=== PATIENT | male | born 1980 ===

== ENCOUNTER 2017-01-30 17:03 | Inpatient (IN) | payer OTHER ==
[2017-01-30] MEDS ORDERED: Sodium Chloride 0.9% 1,000 ML IV ONE (17:51)
[2017-01-30] MEDS ORDERED: Vancomycin 1 gm/NS 200 ml 1 GM/200 ML BAG IVPB STA (17:56)
[2017-01-30] MEDS ORDERED: Piperacill/Tazo 3.375gm in Dex 3.375 GM/50 ML BAG IVPB STA (17:56)
[2017-01-30] MEDS ORDERED: Piperacillin/Tazobact 3.375 gm 100 ML IVPB ONE (18:09)
[2017-01-30 18:15] LABS: BASO % 0.6 % (0.0-2.0); EOS # 0.4 K/uL (0.0-0.7); EOS % 5.5 % (0.0-4.0); HEMATOCRIT 39.2 % (35.0-51.0); LYMPH % 28.7 % (20.0-40.0); MEAN CELL VOLUME 81.4 fL (80.0-94.0); MEAN CORPUSCULAR HEMOGLOBIN 27.1 pg (27.0-31.0); MEAN CORPUSCULAR HGB CONC 33.3 g/dL (33.0-37.0); MONO # 0.7 K/uL (0.0-0.8); MONO % 9.5 % (0.0-10.0); RED CELL DISTRIBUTION WIDTH 14.2 % (11.5-14.5)
[2017-01-30 18:21] LABS: VENOUS BLOOD GAS BASE EXCESS 3.8 mmol/L (0.0-2.0); VENOUS BLOOD GAS PCO2 46 mmHg (40-60); VENOUS BLOOD PH 7.41 (7.32-7.43)
[2017-01-30 18:23] LABS: CHLORIDE 101 mmol/L (98-107); POTASSIUM 3.3 mmol/L (3.6-5.2)
[2017-01-30 18:25] LABS: AST/SGOT 24 U/L (17-59); BILIRUBIN,TOTAL 0.7 mg/dL (0.2-1.3); CARBON DIOXIDE 25 mmol/L (22-30); GFR AFRICAN-AMERICAN > 60
[2017-01-30 18:26] LABS: ALB/GLOB RATIO 1.4 (1.0-2.1); ALKALINE PHOSPHATASE 61 U/L (38-126); ALT/SGPT 33 U/L (21-72); BLOOD UREA NITROGEN 13 mg/dL (9-20); CALCIUM 8.9 mg/dl (8.6-10.4); GLUCOSE,RANDOM 99 mg/dL (75-110); SODIUM 138 mmol/L (132-148); TOTAL PROTEIN 7.4 g/dL (6.3-8.3)
[2017-01-30 18:31] LABS: INR 1.1
[2017-01-30 18:31] LABS: RBC URINE 12 /hpf (0-3); URINE BILIRUBIN NEGATIVE (NEGATIVE); URINE BLOOD NEGATIVE (NEGATIVE); URINE COLOR Yellow (YELLOW); URINE GLUCOSE (UA) NORMAL (Normal); URINE KETONE TRACE mg/dL (NEGATIVE); URINE LEUKOCYTE ESTERASE TRACE Leu/uL (Negative); URINE PROTEIN 2+ mg/dL (NEGATIVE); URINE UROBILINOGEN NORMAL mg/dL (0.2-1.0); WBC URINE 20 /hpf (0-5)
[2017-01-30] MEDS ORDERED: Iohexol 350mg/ml 100 ML ONE (18:42)
[2017-01-30] MEDS ORDERED: Vancomycin 1 GM 1 GM/250 ML BAG IVPB ONE (18:53)
[2017-01-30] MEDS ORDERED: Sodium Chloride 0.9% 1,000 ML ONE (18:53)
--- NOTE | 2017-01-30 20:07 | CT ---
EXAM: CT Abdomen and Pelvis With Intravenous Contrast CLINICAL HISTORY: 36 years old, male; Pain; Abdominal pain; Flank; Left lower quadrant (llq); Additional info: Cellulitis to the groin, R/O sergio's gangrene TECHNIQUE: Axial computed tomography images of the abdomen and pelvis with intravenous contrast. This CT exam was performed using one or more of the following dose reduction techniques: automated exposure control, adjustment of the mA and/or kV according to patient size, and/or use of iterative reconstruction technique. Coronal and sagittal reformatted images were created and reviewed. CONTRAST: 100 mL of omnipaque 350 administered intravenously. EXAM DATE/TIME: 01/30/2017 6:01 PM COMPARISON: There are no prior studies for comparison. FINDINGS: Lower thorax: Heart size is normal. There are atelectatic changes at the lung bases right greater than left. There is minimal scarring. There is a small hiatal hernia. ABDOMEN: Liver: There is fatty infiltration of the liver. Gallbladder and bile ducts: unremarkable Pancreas: unremarkable Spleen: unremarkable Adrenals: Right adrenal is unremarkable. There is nodular thickening of the left adrenal. Kidneys and ureters: unremarkable Stomach and bowel: Stomach is partially distended. Rotation is normal. There is no obstruction. Terminal ileum is unremarkable. Appendix is not visualized. There is no pericecal inflammation.Colon is incompletely distended which limits evaluation. Appendix: See above. PELVIS: Bladder: Bladder is partially distended. There is mild bladder wall thickening. Reproductive: Seminal vesicles and prostate are unremarkable. ABDOMEN and PELVIS: Intraperitoneal space: There is no free air or free fluid. Bones/joints: There are degenerative changes in the osseus structures. Soft tissues: There is bilateral inguinal adenopathy. There is inflammation in the soft tissues of the groin, right greater than left. There is edema in the dorsal aspect of the penis. There is no discrete abscess. Vasculature: There are multiple phleboliths. Aorta and inferior vena cava are unremarkable. Lymph nodes: There is no para-aortic adenopathy. There are no enlarged iliac nodes. IMPRESSION: Cellulitis in the groin, inflammation greatest on the right; edema in the dorsal aspect of the penis; bilateral inguinal adenopathy Additional findings as described above.
--- NOTE | 2017-01-30 20:16 | C.PDOC ---
History Of Present Illness 36 y/o male presents to ED with complaints of 2 days of redness, pain and swelling to right groin extended to penis. At ED penis is very swollen and patient reports tactile fever. Patient's PMD is Dr. Alvarez. Patient denies chills, abdominal pain, back pain, hematuria and dysuria. No other complaints at this time. Time Seen by Provider: 01/30/17 17:26 Chief Complaint (Nursing): Male Genitourinary History Per: Patient History/Exam Limitations: no limitations Onset/Duration Of Symptoms: Days Current Symptoms Are (Timing): Still Present Associated Symptoms: denies: Fever Past Medical History Reviewed: Historical Data, Nursing Documentation, Vital Signs Vital Signs: Last Vital Signs Temp 98.6 F 01/30/17 21:51 Pulse 82 01/30/17 21:51 Resp 20 01/30/17 21:51 BP 142/81 01/30/17 21:51 Pulse Ox 96 01/30/17 21:51 - Medical History PMH: HTN - [facility] Procedures FLUOROSCOPY OF LEFT HEART USING LOW OSMOLAR CONTRAST (12/05/16) FLUOROSCOPY OF MULT COR ART USING L OSM CONTRAST (12/05/16) MEASURE OF CARDIAC SAMPL & PRESSURE, L HEART, PERC APPROACH (12/05/16) Family History: States: Unknown Family Hx - Social History Hx Alcohol Use: No Hx Substance Use: No - Immunization History Hx Tetanus Toxoid Vaccination: No Hx Influenza Vaccination: No Hx Pneumococcal Vaccination: No Review Of Systems Except As Marked, All Systems Reviewed And Found Negative. Constitutional: Negative for: Fever, Chills Cardiovascular: Negative for: Chest Pain Respiratory: Negative for: Shortness of Breath Gastrointestinal: Negative for: Nausea, Vomiting, Diarrhea Genitourinary: Negative for: Dysuria Musculoskeletal: Negative for: Back Pain Skin: Negative for: Rash Neurological: Negative for: Weakness, Numbness Physical Exam - Physical Exam Appears: Non-toxic, No Acute Distress Skin: Normal Color, Warm Head: Atraumatic, Normacephalic Eye(s): bilateral: Normal Inspection Lymphatic: Inguinal Node Tenderness (b/l lymphadenopathy) Cardiovascular: Rhythm Regular, No Murmur Respiratory: Normal Breath Sounds, No Rales, No Rhonchi, No Wheezing Gastrointestinal/Abdominal: Soft, No Tenderness, No Guarding, No Rebound Male Genital: No Circumcised (with +phimosis), Other (+Inguinal lymphadenopathy , Erythema Edema and Induration to right groin involving penis, No crepitus) Extremity: Normal ROM, Capillary Refill (<2 seconds) Neurological/Psych: Oriented x3, Normal Speech Gait: Steady ED Course And Treatment - Laboratory Results Result Diagrams: 01/30/17 18:09 01/30/17 18:09 Interpretation Of Abnormal: WBC is wnl. K 3.3. UA shows signs of (+) UTI. O2 Sat by Pulse Oximetry: 97 (RA) Pulse Ox Interpretation: Normal - CT Scan/US CT abd/pelvis w/ IV contrast Other Rad Studies (CT/US): Read By Radiologist CT/US Interpretation: FINDINGS: Lower thorax: Heart size is normal. There are atelectatic changes at the lung bases right greater. than left. There is minimal scarring. There is a small hiatal hernia. ABDOMEN: Liver: There is fatty infiltration of the liver. Gallbladder and bile ducts: unremarkable. Pancreas: unremarkable. Spleen: unremarkable. Adrenals: Right adrenal is unremarkable. There is nodular thickening of the left adrenal. Kidneys and ureters: unremarkable. Stomach and bowel: Stomach is partially distended. Rotation is normal. There is no obstruction. Terminal ileum is unremarkable. Appendix is not visualized. There is no pericecal. inflammation.Colon is incompletely distended which limits evaluation. Appendix: See above. PELVIS: Bladder: Bladder is partially distended. There is mild bladder wall thickening. Reproductive: Seminal vesicles and prostate are unremarkable. ABDOMEN and PELVIS: Intraperitoneal space: There is no free air or free fluid. Bones/ joints: There are degenerative changes in the osseus structures. Soft tissues: There is bilateral inguinal adenopathy. There is inflammation in the soft tissues of the. groin, right greater than left. There is edema in the dorsal aspect of the penis. There is no discrete. abscess. Vasculature: There are multiple phleboliths. Aorta and inferior vena cava are unremarkable. Lymph nodes: There is no para-aortic adenopathy. There are no enlarged iliac nodes. IMPRESSION: Cellulitis in the groin, inflammation greatest on the right; edema in the dorsal aspect. of the penis; bilateral inguinal adenopathy. Additional findings as described above. Dictated and Authenticated by: Bettina García MD. 01/30/2017 8:06 PM Eastern Time ([place] & [place]) Medical Decision Making Medical Decision Makin yo M presents with pain, redness and swelling to the R groin / penis x 2 days. Based on history and exam, likely cellulitis, possible balanitis with secondary skin infection, r/o sergoi's gangrene. 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 Yeager, who agrees with current plan and has no further recommendations, request to be placed on consult. Labs reviewed, WBC is wnl, lactic acid is nl. IV zosyn and vancomycin infusing. Pt awaiting CT. On re-evaluation, patient is resting comfortably in bed. Pt seen and evaluated by ER MD, agrees with current plan of care. CT results reviewed. Call placed to Dr. Alvarez. Diagnostic results d/w the patient in great detail. Patient notified of plan for inpatient care, which he agrees to. Case d/w Dr. Alvarez, agrees with plan to admit the patient for IV antibiotics and notified of consult placed to Dr. Yeager. Orders given to RN. Disposition - Disposition Disposition: HOSPITALIZED Disposition Time: 20:31 Condition: STABLE - Clinical Impression Clinical Impression: Cellulitis - PA / DESIGN MAINTENANCE ENGINEER / Resident Statement MD/DO has reviewed & agrees with the documentation as recorded. - Scribe Statement The provider has reviewed the documentation as recorded by the Parish Fontanez All medical record entries made by the Parish were at my direction and personally dictated by me. I have reviewed the chart and agree that the record accurately reflects my personal performance of the history, physical exam, medical decision making, and the department course for this patient. I have also personally directed, reviewed, and agree with the discharge instructions and disposition.
[2017-01-30] MEDS ORDERED: Oxycodone/Acetaminophen 5/325 mg Tab PO PRN (20:44)
[2017-01-30] MEDS ORDERED: Home Med 1 UNIT (Atorvastatin [Lipitor] 10 MG) PO SCH (20:45)
[2017-01-30] MEDS ORDERED: Piperacillin/Tazobact 3.375 GM in Sodium Chloride 100 ML IVPB SCH (20:45)
[2017-01-30 21:51] VITALS: RESP 20
[2017-01-30] MEDS ORDERED: Potassium Chloride 10 mEq ER Tab PO ONE (22:40)
--- NOTE | 2017-01-30 23:56 | CP.PCM.HP ---
History of Present Illness - History of Present Illness History of Present Illness: COMPREHENSIVE HISTORY & PHYSICAL EXAM HPI FOR 2 DAYS PT HAS SWELLING IN THE R GROIN EXTENDING TO PEINIS . NO TRAUMA , FEVER ,CHILLS OR ANY PENIAL DISCHARGE . NO EXPOSURE TO STS RECENT OR REMOTE PAST HIST. HTN ON 2 MEDS CATH NORM. COR PERSONAL HIST: Smoking. N Alcohol. N Allergy N Travel_- . FAMILY HIST : ROS : Constitutional: Negative for weight change, chills, night sweats, fatigue and usage of assist device. Eyes: Negative for redness, swelling, itching, discharge, vision changes, blurry vision, double vision, glaucoma, cataracts, Ears: Negative for hearing loss, ringing, , tinnitus, vertigo Nose: Negative for rhinorrhea, stuffiness, sniffing, itching, postnasal drip, discoloration, nasal congestion and epistaxis. Throat: Negative for throat clearing, sore throat, hoarseness, difficulty swallowing and difficulty speaking. Respiratory: Negative for cough, , sputum production, chest tightness, wheezing, pleuritic chest pain ,daytime somnolence, chronic cough, hemoptysis, snoring at night, Cardiovascular: Negative for chest pain, palpitations, orthopnea, PND, Edema of legs, leg cramps, angina, claudication, , irregular heartbeat, Neurology: Negative for irritability, muscle weakness, numbness and tingling, seizures, tremors, migraines, slurred speech, syncope, memory loss, mood changes , recurrent headaches Gastrointestinal: Negative for difficulty swallowing, diarrhea, constipation, black stools, rectal bleeding, nausea, flatulence, reflux, poor appetite, changes in bowel habits, abdominal pain Genitourinary: Negative for frequent urination, hematuria, discharge, incontinence, urinary retention, frequent UTI, Psychiatric: Negative for depression, anxiety/panic, suicidal tendencies, Musculoskeletal: Negative for swollen joints, back pain, , neck pain, morning stiffness of joints, . Skin: Negative for rash, ulcers, itching, dry skin and pigmented lesions. SWELLING IN R GROIN P/E: Constitutional: Appears stated age and in no apparent distress. Head: Normocephalic. Ears: External ear canals patent without inflammation. Tympanic membranes intact with normal light reflex and landmark. Eyes: Pupils are central, bilaterally equal, symmetrical and reacts to light with normal movements and no icterus or pallor. Nose: External nares are patent. Mucosa is pink Mouth-Throat: Good general appearance and condition. No post-pharyngeal/oropharyngeal erythema and tonsillar hypertrophy. Good dental hygiene. Neck-Lymphatic: Neck is supple with normal ROM, no thyromegaly, lymph nodes or masses. JVD is normal with no carotid bruit. Lungs: Clear to percussion and auscultation with bilateral normal air entry. Cardiovascular: S1 and S2 are normal with no murmurs, gallops and rub. GI Exam: No hepatomegaly. Abdomen is soft and non-tender. No Organomegaly , masses or hernias are evident and bowel sounds are normal and active. Neurology: Higher function and all cranial nerves intact, with no gross motor or sensory deficit. Superficial and deep reflexes are normal with downwards planters. No cerebellar deficit with normal gait. Musculoskeletal: No tender spots with normal curvature of the spine with no swelling or restricted ROM of the small and large joints. Extremities: Homans sign absent. Intact pulses with no pitting edema, calf tenderness or skin color changes. Skin: CELLULITIS IN R. GROIN EXTENDING TO PENIS . THE PENIS IS SWOLLEN LAB/RADIOLOGY: ASSESMENT : ACUTE SPREADING CELLULITIS HTN PLAN: ID EVAL IV AB Present on Admission - Present on Admission Any Indicators Present on Admission: No Past Patient History - Past Medical History & Family History Past Medical History?: No - Past Social History Smoking Status: Former Smoker - CARDIAC Hx Hypertension: Yes - MUSCULOSKELETAL/RHEUMATOLOGICAL Hx Falls: No - PSYCHIATRIC Hx Substance Use: No - SURGICAL HISTORY Hx Cardiac Catheterization: Yes - ANESTHESIA Hx Anesthesia: Yes Hx Anesthesia Reactions: No Hx Malignant Hyperthermia: No Has any member of the family had a problem w/ anesthesia?: No Meds Allergies/Adverse Reactions: Allergies Allergy/AdvReac Type Severity Reaction Status Date / Time No Known Allergies Allergy Verified 01/30/17 17:11 Results - Vital Signs Recent Vital Signs: Last Vital Signs Temp 98.6 F 01/30/17 21:51 Pulse 82 01/30/17 21:51 Resp 20 01/30/17 21:51 BP 142/81 01/30/17 21:51 Pulse Ox 97 01/30/17 23:18 - Labs Result Diagrams: 01/30/17 18:09 01/30/17 18:09
[2017-01-31] MEDS: Piperacillin/Tazobact 3.375 GM in Sodium Chloride 100 ML IVPB SCH ×3 (01:14→17:20)
--- NOTE | 2017-01-31 14:18 | CP.PCM.PN ---
Subjective - Date & Time of Evaluation Date of Evaluation: 01/31/17 Time of Evaluation: 14:16 - Subjective Subjective: CHIEF COMPLAINTS TODAY : PAIN SWELLING IN R. GROIN NODYSURIA OR RETENSION ROS. HEENT : N. Resp : No cough, wheezing ,pleuritic CP ,or hemoptysis Cardio : No anginal CP, PND, orthopnea, palpitation GI : No abd.pain, n/v ,diarrhea or GI bleeding . 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 Musculoskel : No joint swelling , Derm : No rash Psych : Normal affect. Ext : No swelling ,calf pain PE. Pt. is alert awake in no distress. V.S As noted in the chart Head ,ear nose,throat and eyes : Normal. Neck : Supple with normal carotids. Lungs: Clear air entry. Heart : S1 & S2 normal with S4. No murmur. Abd : Soft non tender with normal bowel sounds. Neuro : Moves all ext. with no localized deficit. Ext : No edema with intact pulses.Non tender calves Derm : UMBERTO GROIN CELLULITIS WITH SWOLLEN PENIS LABS/RADIOLOGY: ASSESSMENT/PLAN : IV AB ID/UROLOGY EVAL Objective - Vital Signs/Intake and Output Vital Signs (last 24 hours): Temp Pulse Resp BP Pulse Ox 98.8 F 81 20 133/82 97 01/31/17 00:00 01/31/17 00:00 01/31/17 00:00 01/31/17 00:00 01/31/17 00:00 Intake and Output: 01/31/17 01/31/17 11:59 23:59 Intake Total 250 Balance 250 - Medications Medications: Current Medications Heparin Sodium (Porcine) (Heparin) 5,000 units SC Q12H [facility] Last Admin: 01/31/17 09:30 Dose: 5,000 units Piperacillin Sod/Tazobactam (Sod 3.375 gm/ Sodium Chloride) 100 mls @ 200 mls/ hr IVPB Q8H [facility] Last Admin: 01/31/17 09:54 Dose: 200 mls/hr Doxycycline Hyclate 100 mg/ (Sodium Chloride) 100 mls @ 100 mls/hr IVPB Q12H [facility] Last Admin: 01/31/17 11:28 Dose: 100 mls/hr Vancomycin HCl 1,000 mg/ (Sodium Chloride) 250 mls @ 166.6 mls/hr IVPB Q12H [facility] Last Admin: 01/31/17 06:08 Dose: 166.6 mls/hr Labetalol HCl (Trandate) 200 mg PO BID [facility] Last Admin: 01/31/17 09:24 Dose: 200 mg Lisinopril (Zestril) 10 mg PO BID [facility] Last Admin: 01/31/17 09:27 Dose: 10 mg Oxycodone/Acetaminophen (Percocet 5/325 Mg Tab) 1 tab PO Q6H PRN PRN Reason: Pain, moderate (4-7) Stop: 02/02/17 20:45 Pneumococcal Polyvalent Vaccine (Pneumovax 23 Vaccine) 0.5 ml IM .ONCE ONE Stop: 02/01/17 10:01 Rosuvastatin Calcium (Crestor) 5 mg PO HS [facility] Last Admin: 01/30/17 21:54 Dose: 5 mg - Labs Labs: PT 12.8 SECONDS (9.7-12.2) H 01/30/17 18:09 INR 1.1 01/30/17 18:09 APTT 28 SECONDS (21-34) 01/30/17 18:09
--- NOTE | 2017-01-31 14:22 | CP.PCM.CON ---
History of Present Illness - History of Present Illness History of Present Illness: INFECTIOUS DISEASE CONSULT; HPI; 36 y/o male presents to ED with complaints of 2 days of redness, pain and swelling to right groin extended to penis. patient denies any abdominal pain, back pain, hematuria or dysuria.Patient does admit to tactile fever. PATIENT DENIES ANY PROMISCUOUS ACTIVITY OR ANY STDS IN THE PAST. CT of the abdomen and pelvis with IV contrast was done in the ER which showed bilateral inguinal lymphadenopathy right sided more than the left with inflammatory changes in the soft tissues of the groin and edema dorsal aspect of the penis. No abscess was seen. Patient was given a dose of vancomycin 1 g and Zosyn 3.375 g in the ER. INFECTIOUS DISEASE CONSULTATION REQUESTED BY PMD FOR FURTHER EVALUATION. PMH: HTN - [facility] Procedures FLUOROSCOPY OF LEFT HEART USING LOW OSMOLAR CONTRAST (12/05/16) FLUOROSCOPY OF MULT COR ART USING L OSM CONTRAST (12/05/16) MEASURE OF CARDIAC SAMPL & PRESSURE, L HEART, PERC APPROACH (12/05/16) Family History: States: Unknown Family Hx - Social History Hx Alcohol Use: No Hx Substance Use: No - Immunization History Hx Tetanus Toxoid Vaccination: No Hx Influenza Vaccination: No Hx Pneumococcal Vaccination: No allergy; nka Review of Systems - Constitutional Constitutional: Fever. absent: Chills - EENT Eyes: absent: Blurred Vision Nose/Mouth/Throat: Dry Mouth - Cardiovascular Cardiovascular: absent: Chest Pain - Respiratory Respiratory: absent: Cough, Dyspnea - Gastrointestinal Gastrointestinal: absent: Abdominal Pain, Diarrhea, Nausea, Vomiting - Genitourinary Genitourinary: absent: Dysuria, Hematuria - Musculoskeletal Musculoskeletal: absent: Arthralgias - Integumentary Integumentary: absent: Skin Ulcer, Sores - Neurological Neurological: absent: Headaches, Weakness - Hematologic/Lymphatic Hematologic: As Per HPI, Lymphadenopathy. absent: Easy Bleeding Past Patient History - Past Medical History & Family History Past Medical History?: No - Past Social History Smoking Status: Former Smoker - CARDIAC Hx Hypertension: Yes - MUSCULOSKELETAL/RHEUMATOLOGICAL Hx Falls: No - PSYCHIATRIC Hx Substance Use: No - SURGICAL HISTORY Hx Cardiac Catheterization: Yes - ANESTHESIA Hx Anesthesia: Yes Hx Anesthesia Reactions: No Hx Malignant Hyperthermia: No Has any member of the family had a problem w/ anesthesia?: No Meds Allergies/Adverse Reactions: Allergies Allergy/AdvReac Type Severity Reaction Status Date / Time No Known Allergies Allergy Verified 01/30/17 17:11 - Medications Medications: Current Medications Heparin Sodium (Porcine) (Heparin) 5,000 units SC Q12H [facility] Last Admin: 01/31/17 09:30 Dose: 5,000 units Piperacillin Sod/Tazobactam (Sod 3.375 gm/ Sodium Chloride) 100 mls @ 200 mls/ hr IVPB Q8H [facility] Last Admin: 01/31/17 09:54 Dose: 200 mls/hr Doxycycline Hyclate 100 mg/ (Sodium Chloride) 100 mls @ 100 mls/hr IVPB Q12H [facility] Last Admin: 01/31/17 11:28 Dose: 100 mls/hr Vancomycin HCl 1,000 mg/ (Sodium Chloride) 250 mls @ 166.6 mls/hr IVPB Q12H [facility] Last Admin: 01/31/17 06:08 Dose: 166.6 mls/hr Labetalol HCl (Trandate) 200 mg PO BID [facility] Last Admin: 01/31/17 09:24 Dose: 200 mg Lisinopril (Zestril) 10 mg PO BID [facility] Last Admin: 01/31/17 09:27 Dose: 10 mg Oxycodone/Acetaminophen (Percocet 5/325 Mg Tab) 1 tab PO Q6H PRN PRN Reason: Pain, moderate (4-7) Stop: 02/02/17 20:45 Pneumococcal Polyvalent Vaccine (Pneumovax 23 Vaccine) 0.5 ml IM .ONCE ONE Stop: 02/01/17 10:01 Rosuvastatin Calcium (Crestor) 5 mg PO [facility] Last Admin: 01/30/17 21:54 Dose: 5 mg Physical Exam - Constitutional Appears: No Acute Distress - Head Exam Head Exam: NORMAL INSPECTION - Eye Exam Eye Exam: EOMI, PERRL - ENT Exam ENT Exam: Normal Oropharynx - Neck Exam Neck exam: Positive for: Normal Inspection - Respiratory Exam Respiratory Exam: Clear to Auscultation Bilateral, NORMAL BREATHING PATTERN - Cardiovascular Exam Cardiovascular Exam: REGULAR RHYTHM, +S1, +S2 - GI/Abdominal Exam GI & Abdominal Exam: Normal Bowel Sounds, Soft. absent: Guarding - Exam Exam: absent: Circumcision, Scrotal Swelling, Uretheral Discharge External exam: Erythema, Swelling Additional comments: bilateral lymphadenopathy right sided more than the left with erythema extending over the penis - Extremities Exam Extremities exam: Positive for: pedal pulses present. Negative for: calf tenderness, pedal edema - Neurological Exam Neurological exam: Alert, CN II-XII Intact, Oriented x3, Reflexes Normal - Psychiatric Exam Psychiatric exam: Normal Mood - Skin Skin Exam: Normal Color, Warm Results - Vital Signs Recent Vital Signs: Last Vital Signs Temp 98.8 F 01/31/17 00:00 Pulse 81 01/31/17 00:00 Resp 20 01/31/17 00:00 BP 133/82 01/31/17 00:00 Pulse Ox 97 01/31/17 00:00 - Labs Result Diagrams: 02/01/17 07:11 02/01/17 07:11 Labs: Laboratory Results - last 24 hr 01/31/17 01/31/17 01/31/17 06:53 06:53 06:53 ESR 20 H C-React Prot High Sens > 15.00 H HIV 1&2 Antibody Screen Negative - Imaging and Cardiology CT scan - abdomen/and pelvis with IV contrast Status: Report reviewed by me (see reports.) Assessment & Plan (1) Cellulitis Status: Acute (2) LAD (lymphadenopathy), inguinal Status: Acute (3) Hypertension Status: Acute - Assessment and Plan (Free Text) Plan: pancultures ESR,CRP, CHLAMYDIA/ GC NAAT. VDRL/FTA. HIV1/2 ANTIBODY PSA FREE AND TOTAL. CONTINUE zOSYN 2.375 EVERY 8 HOURLY.01/30/17. CONTINUE iv VANCOMYCIN 1 G EVERY 12 HOURLY 01/30/17. ADD iv DOXYCYCLINE 100 MG EVERY 12 HOURLY FOR ATYPICAL PATHOGENS AND CHLAMYDIA .01/30/17. FOLLOW-UP CULTURES TO ADJUST ANTIBIOTICS. AND FOLLOW ALONG WITH YOU.
[2017-02-01] MEDS: Piperacillin/Tazobact 3.375 GM in Sodium Chloride 100 ML IVPB SCH ×3 (01:53→17:03)
[2017-02-01 07:25] LABS: CHLORIDE 100 mmol/L (98-107); SODIUM 138 mmol/L (132-148)
[2017-02-01 07:26] LABS: POTASSIUM 3.5 mmol/L (3.6-5.2)
[2017-02-01 07:27] LABS: BASO % 0.7 % (0.0-2.0); EOS # 0.6 K/uL (0.0-0.7); EOS % 9.6 % (0.0-4.0); GFR AFRICAN-AMERICAN > 60; HEMATOCRIT 40.4 % (35.0-51.0); MEAN CELL VOLUME 82.8 fL (80.0-94.0); MEAN CORPUSCULAR HEMOGLOBIN 27.4 pg (27.0-31.0); MEAN CORPUSCULAR HGB CONC 33.1 g/dL (33.0-37.0); MEAN PLATELET VOLUME 9.2 fL (7.2-11.7); MONO # 0.5 K/uL (0.0-0.8); MONO % 8.7 % (0.0-10.0); NRBC % 0.1 % (0.0-2.0); RED CELL DISTRIBUTION WIDTH 14.5 % (11.5-14.5); WHITE BLOOD COUNT 5.8 K/uL (4.8-10.8)
[2017-02-01 07:28] LABS: ALB/GLOB RATIO 1.3 (1.0-2.1); ALKALINE PHOSPHATASE 58 U/L (38-126); ALT/SGPT 32 U/L (21-72); AST/SGOT 21 U/L (17-59); BILIRUBIN,TOTAL 0.6 mg/dL (0.2-1.3); BLOOD UREA NITROGEN 12 mg/dL (9-20); CARBON DIOXIDE 25 mmol/L (22-30); GLUCOSE,RANDOM 110 mg/dL (75-110)
[2017-02-01 07:29] LABS: CALCIUM 8.4 mg/dl (8.6-10.4)
[2017-02-01] MEDS ORDERED: Pneumococcal 23-Valent Vaccine IM ONE (10:00)
[2017-02-01] MEDS: Potassium Chloride 20 mEq ER Tab PO SCH (12:18)
--- NOTE | 2017-02-01 14:23 | CP.PCM.PN ---
Subjective - Date & Time of Evaluation Date of Evaluation: 02/01/17 Time of Evaluation: 14:21 - Subjective Subjective: CHIEF COMPLAINTS TODAY : MILD DYSURIA PAIN IN GROIN ROS. HEENT : N. Resp : No cough, wheezing ,pleuritic CP ,or hemoptysis Cardio : No anginal CP, PND, orthopnea, palpitation GI : No abd.pain, n/v ,diarrhea or GI bleeding . 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 Musculoskel : No joint swelling , Derm : No rash Psych : Normal affect. Ext : No swelling ,calf pain PE. Pt. is alert awake in no distress. V.S As noted in the chart Head ,ear nose,throat and eyes : Normal. Neck : Supple with normal carotids. Lungs: Clear air entry. Heart : S1 & S2 normal with S4. No murmur. Abd : Soft non tender with normal bowel sounds. Neuro : Moves all ext. with no localized deficit. Ext : No edema with intact pulses.Non tender calves Derm : No rashes or decubitus ulcer. LABS/RADIOLOGY: URINE : GRP B STREP HEMOLYTICUS ASSESSMENT/PLAN : CONT IV ZOSYN BP CONTROL Objective - Vital Signs/Intake and Output Vital Signs (last 24 hours): Temp Pulse Resp BP Pulse Ox 98.2 F 79 20 144/89 95 02/01/17 08:00 02/01/17 08:00 02/01/17 08:00 02/01/17 10:00 02/01/17 08:00 Intake and Output: 02/01/17 02/01/17 11:59 23:59 Intake Total 570 Balance 570 - Medications Medications: Current Medications Heparin Sodium (Porcine) (Heparin) 5,000 units SC Q12H [facility] Last Admin: 02/01/17 10:10 Dose: 5,000 units Piperacillin Sod/Tazobactam (Sod 3.375 gm/ Sodium Chloride) 100 mls @ 200 mls/ hr IVPB Q8H [facility] Last Admin: 02/01/17 10:13 Dose: 200 mls/hr Doxycycline Hyclate 100 mg/ (Sodium Chloride) 100 mls @ 100 mls/hr IVPB Q12H [facility] Last Admin: 02/01/17 11:10 Dose: 100 mls/hr Vancomycin HCl 1,000 mg/ (Sodium Chloride) 250 mls @ 166.6 mls/hr IVPB Q12H [facility] Last Admin: 02/01/17 06:04 Dose: 166.6 mls/hr Labetalol HCl (Trandate) 200 mg PO BID [facility] Last Admin: 02/01/17 10:10 Dose: 200 mg Lisinopril (Zestril) 10 mg PO BID [facility] Last Admin: 02/01/17 10:09 Dose: 10 mg Oxycodone/Acetaminophen (Percocet 5/325 Mg Tab) 1 tab PO Q6H PRN PRN Reason: Pain, moderate (4-7) Stop: 02/02/17 20:45 Potassium Chloride (K-Dur 20 Meq Er Tab) 20 meq PO DAILY [facility] Last Admin: 02/01/17 12:18 Dose: 20 meq Rosuvastatin Calcium (Crestor) 5 mg PO HS [facility] Last Admin: 01/31/17 22:03 Dose: 5 mg - Labs Labs: 02/01/17 07:11 02/01/17 07:11 PT 12.8 SECONDS (9.7-12.2) H 01/30/17 18:09 INR 1.1 01/30/17 18:09 APTT 28 SECONDS (21-34) 01/30/17 18:09
--- NOTE | 2017-02-01 15:36 | CP.PCM.PN ---
Subjective - Date & Time of Evaluation Date of Evaluation: 02/01/17 Time of Evaluation: 15:36 - Subjective Subjective: AFEBRILE, CLINICALLY SAME STATES HAS LESS DYSURIA IV INFILTRATED. PER RN UNABLE TO RESTART POOR VEINS-WILL NEED PICC LINE. CHANGE VIBRAMYCIN TO BY MOUTH 100 MG TWICE A DAY. RESTART iv ZOSYN/iv VANCOMYCIN ONCE INTRAVENOUS ACCESS RESUMED. labs reviewed: urine culture +ve BETA-HEMOLYTIC STREPT GROUP B Objective - Vital Signs/Intake and Output Vital Signs (last 24 hours): Temp Pulse Resp BP Pulse Ox 98.2 F 79 20 144/89 95 02/01/17 08:00 02/01/17 08:00 02/01/17 08:00 02/01/17 10:00 02/01/17 08:00 Intake and Output: 02/01/17 02/01/17 06:59 18:59 Intake Total 600 570 Balance 600 570 - Medications Medications: Current Medications Doxycycline Hyclate (Doryx) 100 mg PO Q12H [facility] Heparin Sodium (Porcine) (Heparin) 5,000 units SC Q12H [facility] Last Admin: 02/01/17 10:10 Dose: 5,000 units Piperacillin Sod/Tazobactam (Sod 3.375 gm/ Sodium Chloride) 100 mls @ 200 mls/ hr IVPB Q8H [facility] Last Admin: 02/01/17 10:13 Dose: 200 mls/hr Vancomycin HCl 1,000 mg/ (Sodium Chloride) 250 mls @ 166.6 mls/hr IVPB Q12H [facility] Last Admin: 02/01/17 06:04 Dose: 166.6 mls/hr Labetalol HCl (Trandate) 200 mg PO BID [facility] Last Admin: 02/01/17 10:10 Dose: 200 mg Lisinopril (Zestril) 10 mg PO BID [facility] Last Admin: 02/01/17 10:09 Dose: 10 mg Oxycodone/Acetaminophen (Percocet 5/325 Mg Tab) 1 tab PO Q6H PRN PRN Reason: Pain, moderate (4-7) Stop: 02/02/17 20:45 Potassium Chloride (K-Dur 20 Meq Er Tab) 20 meq PO DAILY [facility] Last Admin: 02/01/17 12:18 Dose: 20 meq Rosuvastatin Calcium (Crestor) 5 mg PO HS [facility] Last Admin: 01/31/17 22:03 Dose: 5 mg - Labs Labs: 02/01/17 07:11 02/01/17 07:11 PT 12.8 SECONDS (9.7-12.2) H 01/30/17 18:09 INR 1.1 01/30/17 18:09 APTT 28 SECONDS (21-34) 01/30/17 18:09 - Constitutional Appears: No Acute Distress - Head Exam Head Exam: NORMAL INSPECTION - Eye Exam Eye Exam: EOMI, PERRL - ENT Exam ENT Exam: Normal Oropharynx - Neck Exam Neck Exam: Normal Inspection - Respiratory Exam Respiratory Exam: Clear to Ausculation Bilateral - GI/Abdominal Exam GI & Abdominal Exam: Soft, Tenderness (LOWER ABDOMEN.), Normal Bowel Sounds - Exam Exam: absent: Circumcision, Uretheral Discharge External exam: Erythema (SUPRAPUBIC AND GENITAL AREA. lYMPHADENOPATHY BILATERALLY GROIN REGIONS) - Extremities Exam Extremities Exam: absent: Calf Tenderness, Pedal Edema - Neurological Exam Neurological Exam: Awake, CN II-XII Intact, Oriented x3, Reflexes Normal - Psychiatric Exam Psychiatric exam: Normal Mood - Skin Skin Exam: Normal Color, Warm Assessment and Plan (1) UTI (urinary tract infection), bacterial Status: Acute (2) Cellulitis Status: Acute (3) LAD (lymphadenopathy), inguinal Status: Acute (4) Hypertension Status: Acute - Assessment and Plan (Free Text) Plan: IV infiltrated. IV antibiotics on hold till PICC line inserted. Change Vibramycin 2 by mouth 100 mg twice a day given IV resumed. CONTINUE zOSYN 2.375 EVERY 8 HOURLY.01/30/17.- on hold CONTINUE iv VANCOMYCIN 1 G EVERY 12 HOURLY 01/30/17.-on hold ADD iv DOXYCYCLINE 100 MG EVERY 12 HOURLY FOR ATYPICAL PATHOGENS AND CHLAMYDIA .01/30/17. FOLLOW-UP CULTURES TO ADJUST ANTIBIOTICS. will FOLLOW ALONG WITH YOU.
[2017-02-02] MEDS: Piperacillin/Tazobact 3.375 GM in Sodium Chloride 100 ML IVPB SCH ×3 (02:20→18:06)
[2017-02-02 06:13] LABS: BASO % 0.5 % (0.0-2.0); EOS # 0.4 K/uL (0.0-0.7); EOS % 4.1 % (0.0-4.0); LYMPH # 2.4 K/uL (1.0-4.3); LYMPH % 24.6 % (20.0-40.0); MEAN CELL VOLUME 81.7 fL (80.0-94.0); MEAN CORPUSCULAR HEMOGLOBIN 26.7 pg (27.0-31.0); MEAN CORPUSCULAR HGB CONC 32.7 g/dL (33.0-37.0); MEAN PLATELET VOLUME 9.4 fL (7.2-11.7); MONO # 0.8 K/uL (0.0-0.8); MONO % 8.8 % (0.0-10.0); RED CELL DISTRIBUTION WIDTH 14.1 % (11.5-14.5); WHITE BLOOD COUNT 9.6 K/uL (4.8-10.8)
[2017-02-02 06:49] LABS: CHLORIDE 101 mmol/L (98-107); POTASSIUM 3.5 mmol/L (3.6-5.2); SODIUM 135 mmol/L (132-148)
[2017-02-02 06:51] LABS: BILIRUBIN,TOTAL 0.6 mg/dL (0.2-1.3); GFR AFRICAN-AMERICAN > 60
[2017-02-02 06:52] LABS: ALB/GLOB RATIO 1.2 (1.0-2.1); ALKALINE PHOSPHATASE 49 U/L (38-126); ALT/SGPT 33 U/L (21-72); AST/SGOT 15 U/L (17-59); BLOOD UREA NITROGEN 12 mg/dL (9-20); CALCIUM 7.5 mg/dl (8.6-10.4); CARBON DIOXIDE 22 mmol/L (22-30); GLUCOSE,RANDOM 97 mg/dL (75-110); TOTAL PROTEIN 6.6 g/dL (6.3-8.3)
[2017-02-02] MEDS: Potassium Chloride 20 mEq ER Tab PO SCH (09:28)
[2017-02-02] MEDS ORDERED: Lidocaine 1% Inj (20ml) ONE (10:34)
--- NOTE | 2017-02-02 10:54 | PCM.SURG1 ---
Surgeon's Initial Post Op Note - Surgeon's Notes Surgeon: Farhan Perez MD Division Order Technician: NONE Type of Anesthesia: Local Pre-Operative Diagnosis: Poor venous access Operative Findings: Patent left brachial vein. Post-Operative Diagnosis: Poor venous access Operation Performed: SIngle lumen picc placement left brachial vein, 48 cm. Tip in SVC. Specimen/Specimens Removed: NONE Estimated Blood Loss: EBL {In ML}: 2 Blood Products Given: N/A Drains Used: No Drains Post-Op Condition: Fair Date of Surgery/Procedure: 02/02/17 Time of Surgery/Procedure: 10:50
--- NOTE | 2017-02-02 12:33 | CP.PCM.PN ---
Subjective - Date & Time of Evaluation Date of Evaluation: 02/02/17 Time of Evaluation: 12:32 - Subjective Subjective: CHIEF COMPLAINTS TODAY : MILD DYSURIA PAIN IN GROIN DIFFICULT IV ACCESS , ON PICC LINE NOW ROS. HEENT : N. Resp : No cough, wheezing ,pleuritic CP ,or hemoptysis Cardio : No anginal CP, PND, orthopnea, palpitation GI : No abd.pain, n/v ,diarrhea or GI bleeding . [employer] : No headache, vertigo, focal deficit. Musculoskel : No joint swelling , Derm : No rash Psych : Normal affect. Ext : No swelling ,calf pain PE. Pt. is alert awake in no distress. V.S As noted in the chart Head ,ear nose,throat and eyes : Normal. Neck : Supple with normal carotids. Lungs: Clear air entry. Heart : S1 & S2 normal with S4. No murmur. Abd : Soft non tender with normal bowel sounds. Neuro : Moves all ext. with no localized deficit. Ext : No edema with intact pulses.Non tender calves Derm : No rashes or decubitus ulcer. LABS/RADIOLOGY: URINE : GRP B STREP HEMOLYTICUS ASSESSMENT/PLAN : CONT IV ZOSYN BP CONTROL Objective - Vital Signs/Intake and Output Vital Signs (last 24 hours): Temp Pulse Resp BP Pulse Ox 98.1 F 68 20 168/102 H 97 02/02/17 07:59 02/02/17 07:59 02/02/17 07:59 02/02/17 07:59 02/02/17 07:59 Intake and Output: 02/02/17 02/02/17 11:59 23:59 Intake Total 100 Balance 100 - Medications Medications: Current Medications Doxycycline Hyclate (Doryx) 100 mg PO Q12H [facility] Last Admin: 02/02/17 03:00 Dose: 100 mg Heparin Sodium (Porcine) (Heparin) 5,000 units SC Q12H [facility] Last Admin: 02/02/17 09:30 Dose: 5,000 units Piperacillin Sod/Tazobactam (Sod 3.375 gm/ Sodium Chloride) 100 mls @ 200 mls/ hr IVPB Q8H [facility] Last Admin: 02/02/17 09:28 Dose: 200 mls/hr Vancomycin HCl 1,000 mg/ (Sodium Chloride) 250 mls @ 166.6 mls/hr IVPB Q12H [facility] Last Admin: 02/02/17 06:41 Dose: 166.6 mls/hr Labetalol HCl (Trandate) 200 mg PO BID [facility] Last Admin: 02/02/17 09:28 Dose: 200 mg Lisinopril (Zestril) 10 mg PO BID [facility] Last Admin: 02/02/17 09:28 Dose: 10 mg Oxycodone/Acetaminophen (Percocet 5/325 Mg Tab) 1 tab PO Q6H PRN PRN Reason: Pain, moderate (4-7) Stop: 02/02/17 20:45 Potassium Chloride (K-Dur 20 Meq Er Tab) 20 meq PO DAILY [facility] Last Admin: 02/02/17 09:28 Dose: 20 meq Rosuvastatin Calcium (Crestor) 5 mg PO HS [facility] Last Admin: 02/01/17 22:17 Dose: 5 mg - Labs Labs: 02/02/17 06:04 02/02/17 06:04 PT 12.8 SECONDS (9.7-12.2) H 01/30/17 18:09 INR 1.1 01/30/17 18:09 APTT 28 SECONDS (21-34) 01/30/17 18:09
--- NOTE | 2017-02-02 13:57 | US ---
Date of procedure: 02/02/2017 Procedure: Ultrasound guidance for vascular access HISTORY: Infection requiring long-term IV antibiotics TECHNIQUE: Following informed consent and procedure time-out, the patient placed supine on the interventional table and the left arm prepped and draped in the usual sterile fashion. Ultrasound showed a patent and compressible brachial vein. After the skin was anesthetized with lidocaine, the brachial vein was accessed with micro micropuncture technique using ultrasound guidance. An image documenting ultrasound guidance for vascular access was permanently saved. IMPRESSION: Ultrasound guidance for vascular access for placement of PICC.
--- NOTE | 2017-02-02 13:58 | RAD ---
PROCEDURE: Date of procedure: 02/02/2017 Procedure: 1. Placement of a left arm PICC with ultrasound and fluoroscopic guidance, CPT 97933 2. PICC tip confirmation with spot radiograph and is in the superior vena cava Medications: 1 percent lidocaine Total Fluoro time: 10.4 seconds Radiation: 5.932 MGy EBL: 3 cc HISTORY: Bacteremia requiring long-term IV antibiotics TECHNIQUE: Following informed consent and procedure time-out, the patient placed supine on the interventional table and the left arm prepped and draped in the usual sterile fashion. Ultrasound showed a patent and compressible left brachial vein. After the skin was anesthetized with lidocaine, the basilic vein was accessed with micro micropuncture technique using ultrasound guidance. A guidewire was then advanced under fluoroscopic guidance into the superior vena cava. An image documenting ultrasound guidance for vascular access was permanently saved. The length of a single-lumen 5 [place] PICC was trimmed to 48 cm and advanced through a peel-away sheath. The PICC was position with tip of PICC confirm a spot radiograph the superior vena cava. The PICC was secured to the patient's skin. The PICC was flushed. A biopatch and sterile dressing was applied. IMPRESSION: Placement of a single-lumen 5 [place] PICC left brachial vein trimmed to 48 cm. The tip of the PICC is confirmed with spot radiograph and is in the superior vena cava.
[2017-02-02 21:49] LABS: TOTAL PSA 0.4 ng/mL (<=4.0)
--- NOTE | 2017-02-02 22:42 | CP.PCM.PN ---
Subjective - Date & Time of Evaluation Date of Evaluation: 02/02/17 Time of Evaluation: 22:41 - Subjective Subjective: AFEBRILE, CLINICALLY SAME C/O PAIN PELVIC REGION WITH CELLULITIS OF THE PENIS AND SWELLING. STATES HAS LESS DYSURIA. GIRLFRIEND BY HIS SIDE. AWAITING EVALUATION LABS ; REVIEWED. Objective - Vital Signs/Intake and Output Vital Signs (last 24 hours): Temp Pulse Resp BP Pulse Ox 98.5 F 88 20 165/101 H 96 02/02/17 15:00 02/02/17 15:00 02/02/17 15:00 02/02/17 15:00 02/02/17 15:00 Intake and Output: 02/02/17 02/03/17 18:59 06:59 Intake Total 500 Balance 500 - Medications Medications: Current Medications Doxycycline Hyclate (Doryx) 100 mg PO Q12H [facility] Last Admin: 02/02/17 18:05 Dose: 100 mg Heparin Sodium (Porcine) (Heparin) 5,000 units SC Q12H [facility] Last Admin: 02/02/17 22:07 Dose: 5,000 units Piperacillin Sod/Tazobactam (Sod 3.375 gm/ Sodium Chloride) 100 mls @ 200 mls/ hr IVPB Q8H [facility] Last Admin: 02/02/17 18:06 Dose: 200 mls/hr Vancomycin HCl 1,000 mg/ (Sodium Chloride) 250 mls @ 166.6 mls/hr IVPB Q12H [facility] Last Admin: 02/02/17 18:06 Dose: 166.6 mls/hr Labetalol HCl (Trandate) 200 mg PO BID [facility] Last Admin: 02/02/17 18:05 Dose: 200 mg Lisinopril (Zestril) 10 mg PO BID [facility] Last Admin: 02/02/17 18:05 Dose: 10 mg Potassium Chloride (K-Dur 20 Meq Er Tab) 20 meq PO DAILY [facility] Last Admin: 02/02/17 09:28 Dose: 20 meq Rosuvastatin Calcium (Crestor) 5 mg PO HS [facility] Last Admin: 02/02/17 22:07 Dose: 5 mg - Labs Labs: 02/02/17 06:04 02/02/17 06:04 PT 12.8 SECONDS (9.7-12.2) H 01/30/17 18:09 INR 1.1 01/30/17 18:09 APTT 28 SECONDS (21-34) 01/30/17 18:09 - Constitutional Appears: No Acute Distress - Head Exam Head Exam: NORMAL INSPECTION - Eye Exam Eye Exam: EOMI, PERRL - ENT Exam ENT Exam: Normal Oropharynx - Neck Exam Neck Exam: Normal Inspection - Respiratory Exam Respiratory Exam: Clear to Ausculation Bilateral, NORMAL BREATHING PATTERN - Cardiovascular Exam Cardiovascular Exam: REGULAR RHYTHM, +S1, +S2 - GI/Abdominal Exam GI & Abdominal Exam: Soft, Tenderness (SUPRAPUBIC. CELLULITIS LOWER PELVIC REGION WITH EDEMA AND SWELLING OF THE PENILE SHAFT. pATIENT UNCIRCUMCISED AND FEELS PAIN ON WITHDRAWING HIS FORESKIN), Normal Bowel Sounds - Exam Exam: Testicular Tenderness. absent: Circumcision, Scrotal Swelling, Uretheral Discharge, Bladder Distension - Extremities Exam Extremities Exam: Normal Capillary Refill. absent: Calf Tenderness, Pedal Edema - Neurological Exam Neurological Exam: Awake, CN II-XII Intact, Oriented x3, Reflexes Normal - Psychiatric Exam Psychiatric exam: Normal Mood - Skin Skin Exam: Normal Color, Warm Assessment and Plan (1) UTI (urinary tract infection), bacterial Status: Acute (2) Cellulitis Status: Acute (3) LAD (lymphadenopathy), inguinal Status: Acute (4) Hypertension Status: Acute - Assessment and Plan (Free Text) Plan: S/P RAMY picc LINE . IV ANTIBIOTICS WERE RESUMED CONTINUE zOSYN 2.375 EVERY 8 HOURLY.01/30/17.- on hold CONTINUE iv VANCOMYCIN 1 G EVERY 12 HOURLY 01/30/17.-on hold ADD iv DOXYCYCLINE 100 MG EVERY 12 HOURLY FOR ATYPICAL PATHOGENS AND CHLAMYDIA .01/30/17. FOLLOW-UP CULTURES TO ADJUST ANTIBIOTICS. AWAITING EVALUATION
[2017-02-03] MEDS: Piperacillin/Tazobact 3.375 GM in Sodium Chloride 100 ML IVPB SCH ×3 (01:10→17:37)
[2017-02-03 06:37] LABS: BASO # 0.1 K/uL (0.0-0.2); BASO % 0.7 % (0.0-2.0); EOS # 0.5 K/uL (0.0-0.7); EOS % 5.7 % (0.0-4.0); HEMATOCRIT 37.5 % (35.0-51.0); LYMPH # 2.5 K/uL (1.0-4.3); LYMPH % 27.1 % (20.0-40.0); MEAN CELL VOLUME 82.2 fL (80.0-94.0); MEAN CORPUSCULAR HEMOGLOBIN 27.3 pg (27.0-31.0); MEAN CORPUSCULAR HGB CONC 33.2 g/dL (33.0-37.0); MEAN PLATELET VOLUME 9.2 fL (7.2-11.7); MONO # 0.7 K/uL (0.0-0.8); MONO % 7.9 % (0.0-10.0); RED CELL DISTRIBUTION WIDTH 14.5 % (11.5-14.5); WHITE BLOOD COUNT 9.2 K/uL (4.8-10.8)
[2017-02-03 06:56] LABS: CHLORIDE 103 mmol/L (98-107); POTASSIUM 3.5 mmol/L (3.6-5.2); SODIUM 137 mmol/L (132-148)
[2017-02-03 06:59] LABS: ALB/GLOB RATIO 1.3 (1.0-2.1); ALKALINE PHOSPHATASE 51 U/L (38-126); ALT/SGPT 25 U/L (21-72); AST/SGOT 14 U/L (17-59); BILIRUBIN,TOTAL 0.5 mg/dL (0.2-1.3); BLOOD UREA NITROGEN 11 mg/dL (9-20); CALCIUM 8.3 mg/dl (8.6-10.4); CARBON DIOXIDE 24 mmol/L (22-30); GFR AFRICAN-AMERICAN > 60; GLUCOSE,RANDOM 99 mg/dL (75-110); TOTAL PROTEIN 6.6 g/dL (6.3-8.3)
[2017-02-03] MEDS: Potassium Chloride 20 mEq ER Tab PO SCH (10:08)
--- NOTE | 2017-02-03 13:11 | CP.PCM.PN ---
Subjective - Date & Time of Evaluation Date of Evaluation: 02/03/17 Time of Evaluation: 13:11 - Subjective Subjective: CHIEF COMPLAINTS TODAY : MILD DYSURIA PAIN IN GROIN DIFFICULT IV ACCESS , ON PICC LINE NOW ROS. HEENT : N. Resp : No cough, wheezing ,pleuritic CP ,or hemoptysis Cardio : No anginal CP, PND, orthopnea, palpitation GI : No abd.pain, n/v ,diarrhea or GI bleeding . 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 Musculoskel : No joint swelling , Derm : No rash Psych : Normal affect. Ext : No swelling ,calf pain PE. Pt. is alert awake in no distress. V.S As noted in the chart Head ,ear nose,throat and eyes : Normal. Neck : Supple with normal carotids. Lungs: Clear air entry. Heart : S1 & S2 normal with S4. No murmur. Abd : Soft non tender with normal bowel sounds. Neuro : Moves all ext. with no localized deficit. Ext : No edema with intact pulses.Non tender calves Derm : No rashes or decubitus ulcer. LABS/RADIOLOGY: URINE : GRP B STREP HEMOLYTICUS ASSESSMENT/PLAN : CONT IV ZOSYN BP CONTROL Objective - Vital Signs/Intake and Output Vital Signs (last 24 hours): Temp Pulse Resp BP Pulse Ox 98.1 F 82 20 147/88 97 02/03/17 07:00 02/03/17 07:00 02/03/17 07:00 02/03/17 07:00 02/03/17 07:00 Intake and Output: 02/03/17 02/03/17 11:59 23:59 Intake Total 550 650 Balance 550 650 - Medications Medications: Current Medications Doxycycline Hyclate (Doryx) 100 mg PO Q12H [facility] Last Admin: 02/03/17 04:45 Dose: 100 mg Piperacillin Sod/Tazobactam (Sod 3.375 gm/ Sodium Chloride) 100 mls @ 200 mls/ hr IVPB Q8H [facility] Last Admin: 02/03/17 10:14 Dose: 200 mls/hr Vancomycin HCl 1,000 mg/ (Sodium Chloride) 250 mls @ 166.6 mls/hr IVPB Q12H [facility] Last Admin: 02/03/17 06:00 Dose: 166.6 mls/hr Labetalol HCl (Trandate) 200 mg PO BID [facility] Last Admin: 02/03/17 10:09 Dose: 200 mg Lisinopril (Zestril) 10 mg PO BID [facility] Last Admin: 02/03/17 10:09 Dose: 10 mg Potassium Chloride (K-Dur 20 Meq Er Tab) 20 meq PO DAILY [facility] Last Admin: 02/03/17 10:08 Dose: 20 meq Rosuvastatin Calcium (Crestor) 5 mg PO HS [facility] Last Admin: 02/02/17 22:07 Dose: 5 mg - Labs Labs: 02/03/17 06:21 02/03/17 06:21 PT 12.8 SECONDS (9.7-12.2) H 01/30/17 18:09 INR 1.1 01/30/17 18:09 APTT 28 SECONDS (21-34) 01/30/17 18:09
--- NOTE | 2017-02-03 14:00 | CP.PCM.PN ---
Subjective - Date & Time of Evaluation Date of Evaluation: 02/03/17 Time of Evaluation: 14:00 - Subjective Subjective: afebrile, less dysuria, less pelvic pain +ve B/L INGUINAL- LYMPHADENOPATHY. HX OF HERPES ZOSTER IN PAST RELATED BY PT FEW YRS AGO SEC. TO STRESS PER PT. ?IMMUNOSUPPRESSION. CHECK LDH PSA N. Objective - Vital Signs/Intake and Output Vital Signs (last 24 hours): Temp Pulse Resp BP Pulse Ox 98.1 F 82 20 147/88 97 02/03/17 07:00 02/03/17 07:00 02/03/17 07:00 02/03/17 07:00 02/03/17 07:00 Intake and Output: 02/03/17 02/03/17 06:59 18:59 Intake Total 1150 650 Balance 1150 650 - Medications Medications: Current Medications Doxycycline Hyclate (Doryx) 100 mg PO Q12H [facility] Last Admin: 02/03/17 04:45 Dose: 100 mg Piperacillin Sod/Tazobactam (Sod 3.375 gm/ Sodium Chloride) 100 mls @ 200 mls/ hr IVPB Q8H [facility] Last Admin: 02/03/17 10:14 Dose: 200 mls/hr Vancomycin HCl 1,000 mg/ (Sodium Chloride) 250 mls @ 166.6 mls/hr IVPB Q12H [facility] Last Admin: 02/03/17 06:00 Dose: 166.6 mls/hr Labetalol HCl (Trandate) 200 mg PO BID [facility] Last Admin: 02/03/17 10:09 Dose: 200 mg Lisinopril (Zestril) 10 mg PO BID [facility] Last Admin: 02/03/17 10:09 Dose: 10 mg Potassium Chloride (K-Dur 20 Meq Er Tab) 20 meq PO DAILY [facility] Last Admin: 02/03/17 10:08 Dose: 20 meq Rosuvastatin Calcium (Crestor) 5 mg PO HS [facility] Last Admin: 02/02/17 22:07 Dose: 5 mg - Labs Labs: 02/03/17 06:21 02/03/17 06:21 PT 12.8 SECONDS (9.7-12.2) H 01/30/17 18:09 INR 1.1 01/30/17 18:09 APTT 28 SECONDS (21-34) 06/16/17 18:09 - Constitutional Appears: No Acute Distress - Head Exam Head Exam: NORMAL INSPECTION - Eye Exam Eye Exam: EOMI, PERRL. absent: Scleral icterus - ENT Exam ENT Exam: Normal Oropharynx - Neck Exam Neck Exam: Normal Inspection - Respiratory Exam Respiratory Exam: Clear to Ausculation Bilateral, NORMAL BREATHING PATTERN - Cardiovascular Exam Cardiovascular Exam: REGULAR RHYTHM, +S1, +S2 - GI/Abdominal Exam GI & Abdominal Exam: Soft, Tenderness (PELVIC REGION . +VE INGUINAL LYMPHADENOPATHY.), Normal Bowel Sounds Additional comments: Soft, Tenderness (SUPRAPUBIC. CELLULITIS LOWER PELVIC REGION WITH EDEMA AND SWELLING OF THE PENILE SHAFT. pATIENT UNCIRCUMCISED AND FEELS PAIN ON WITHDRAWING HIS FORESKIN), Normal Bowel Sounds - Exam Exam: absent: Uretheral Discharge - Extremities Exam Extremities Exam: Normal Capillary Refill. absent: Calf Tenderness, Pedal Edema - Neurological Exam Neurological Exam: Alert, Awake, CN II-XII Intact, Normal Gait, Oriented x3, Reflexes Normal - Psychiatric Exam Psychiatric exam: Normal Mood - Skin Skin Exam: Normal Color, Warm Assessment and Plan (1) UTI (urinary tract infection), bacterial Status: Acute (2) Cellulitis Status: Acute (3) LAD (lymphadenopathy), inguinal Status: Acute (4) Hypertension Status: Acute - Assessment and Plan (Free Text) Plan: S/P RAMY picc LINE . IV ANTIBIOTICS WERE RESUMED CONTINUE zOSYN 2.375 EVERY 8 HOURLY.01/30/17.- CONTINUE iv VANCOMYCIN 1 G EVERY 12 HOURLY 01/30/17. ADD iv DOXYCYCLINE 100 MG EVERY 12 HOURLY FOR ATYPICAL PATHOGENS AND CHLAMYDIA .01/30/17. FOLLOW-UP CULTURES TO ADJUST ANTIBIOTICS. AWAITING EVALUATION
[2017-02-04] MEDS: Piperacillin/Tazobact 3.375 GM in Sodium Chloride 100 ML IVPB SCH ×3 (01:45→18:27)
[2017-02-04 06:47] LABS: CHLORIDE 103 mmol/L (98-107); SODIUM 138 mmol/L (132-148)
[2017-02-04 06:48] LABS: POTASSIUM 3.8 mmol/L (3.6-5.2)
[2017-02-04 06:49] LABS: GFR AFRICAN-AMERICAN > 60
[2017-02-04 06:50] LABS: ALB/GLOB RATIO 1.1 (1.0-2.1); ALKALINE PHOSPHATASE 52 U/L (38-126); ALT/SGPT 28 U/L (21-72); AST/SGOT 16 U/L (17-59); BILIRUBIN,TOTAL 0.6 mg/dL (0.2-1.3); BLOOD UREA NITROGEN 10 mg/dL (9-20); CALCIUM 8.6 mg/dl (8.6-10.4); CARBON DIOXIDE 23 mmol/L (22-30); GLUCOSE,RANDOM 95 mg/dL (75-110); TOTAL PROTEIN 6.9 g/dL (6.3-8.3)
[2017-02-04 07:01] LABS: BASO # 0.1 K/uL (0.0-0.2); BASO % 0.5 % (0.0-2.0); EOS # 0.7 K/uL (0.0-0.7); EOS % 6.7 % (0.0-4.0); LYMPH # 2.6 K/uL (1.0-4.3); LYMPH % 26.6 % (20.0-40.0); MEAN CELL VOLUME 81.5 fL (80.0-94.0); MEAN CORPUSCULAR HEMOGLOBIN 27.5 pg (27.0-31.0); MEAN CORPUSCULAR HGB CONC 33.7 g/dL (33.0-37.0); MEAN PLATELET VOLUME 9.3 fL (7.2-11.7); MONO # 0.7 K/uL (0.0-0.8); MONO % 7.2 % (0.0-10.0); RED CELL DISTRIBUTION WIDTH 14.5 % (11.5-14.5); WHITE BLOOD COUNT 9.8 K/uL (4.8-10.8)
[2017-02-04 07:38] LABS: RBC URINE 1 /hpf (0-3); URINE BILIRUBIN NEGATIVE (NEGATIVE); URINE BLOOD NEGATIVE (NEGATIVE); URINE COLOR Yellow (YELLOW); URINE GLUCOSE (UA) NORMAL (Normal); URINE KETONE NEGATIVE (NEGATIVE); URINE LEUKOCYTE ESTERASE NEG Leu/uL (Negative); URINE PROTEIN 2+ mg/dL (NEGATIVE); URINE UROBILINOGEN NORMAL mg/dL (0.2-1.0); WBC URINE 1 /hpf (0-5)
[2017-02-04] MEDS: Potassium Chloride 20 mEq ER Tab PO SCH (10:07)
--- NOTE | 2017-02-04 13:20 | CP.PCM.PN ---
Subjective - Date & Time of Evaluation Date of Evaluation: 02/04/17 Time of Evaluation: 13:20 - Subjective Subjective: FEELING BETTER afebrile, DENIES DYSURIA SWELLING GENITALS IMPROVING less pelvic pain +ve B/L INGUINAL- LYMPHADENOPATHY. Objective - Vital Signs/Intake and Output Vital Signs (last 24 hours): Temp Pulse Resp BP Pulse Ox 98.5 F 82 20 159/94 H 96 02/04/17 07:13 02/04/17 07:13 02/04/17 07:13 02/04/17 07:13 02/04/17 07:13 Intake and Output: 02/04/17 02/04/17 06:59 18:59 Intake Total 990 300 Balance 990 300 - Medications Medications: Current Medications Doxycycline Hyclate (Doryx) 100 mg PO Q12H [facility] Last Admin: 02/04/17 05:21 Dose: 100 mg Piperacillin Sod/Tazobactam (Sod 3.375 gm/ Sodium Chloride) 100 mls @ 200 mls/ hr IVPB Q8H [facility] Last Admin: 02/04/17 11:17 Dose: 200 mls/hr Vancomycin HCl 1 gm/ Sodium (Chloride) 250 mls @ 167 mls/hr IVPB Q12H [facility] Last Admin: 02/04/17 06:15 Dose: 167 mls/hr Labetalol HCl (Trandate) 200 mg PO BID [facility] Last Admin: 02/04/17 10:07 Dose: 200 mg Lisinopril (Zestril) 10 mg PO BID [facility] Last Admin: 02/04/17 10:07 Dose: 10 mg Potassium Chloride (K-Dur 20 Meq Er Tab) 20 meq PO DAILY [facility] Last Admin: 02/04/17 10:07 Dose: 20 meq Rosuvastatin Calcium (Crestor) 5 mg PO HS [facility] Last Admin: 02/03/17 21:53 Dose: 5 mg - Labs Labs: 02/04/17 06:14 02/04/17 06:14 PT 12.8 SECONDS (9.7-12.2) H 01/30/17 18:09 INR 1.1 01/30/17 18:09 APTT 28 SECONDS (21-34) 01/30/17 18:09 - Constitutional Appears: No Acute Distress - Head Exam Head Exam: NORMAL INSPECTION - Eye Exam Eye Exam: EOMI, PERRL - ENT Exam ENT Exam: Normal Oropharynx - Neck Exam Neck Exam: Normal Inspection - Respiratory Exam Respiratory Exam: Clear to Ausculation Bilateral, NORMAL BREATHING PATTERN - Cardiovascular Exam Cardiovascular Exam: REGULAR RHYTHM, +S1, +S2 - GI/Abdominal Exam GI & Abdominal Exam: Soft, Tenderness (LESSLOWER PELVIC REGION.), Normal Bowel Sounds - Exam Exam: NORMAL INSPECTION. absent: Circumcision, Scrotal Swelling, Uretheral Discharge Additional comments: CELLULITIS GENITALS IMPROVING. - Extremities Exam Extremities Exam: absent: Calf Tenderness - Back Exam Back Exam: absent: CVA tenderness (L), CVA tenderness (R) - Neurological Exam Neurological Exam: Awake, CN II-XII Intact, Oriented x3, Reflexes Normal - Psychiatric Exam Psychiatric exam: Normal Mood - Skin Skin Exam: Normal Color, Warm Assessment and Plan (1) UTI (urinary tract infection), bacterial Status: Acute (2) Cellulitis Status: Acute (3) LAD (lymphadenopathy), inguinal Status: Acute (4) Hypertension Status: Acute - Assessment and Plan (Free Text) Plan: CONTINUE ZOSYN 2.375 EVERY 8 HOURLY.01/30/17.- CONTINUE iv VANCOMYCIN 1 G EVERY 12 HOURLY 01/30/17. VANCO TROUGH LEVEL TODAY ON IV DOXYCYCLINE 100 MG EVERY 12 HOURLY FOR ATYPICAL PATHOGENS AND CHLAMYDIA .. FOLLOW-UP REPEAT CULTURES TO ADJUST ANTIBIOTICS.
--- NOTE | 2017-02-04 13:37 | CP.PCM.PN ---
Subjective - Date & Time of Evaluation Date of Evaluation: 02/04/17 Time of Evaluation: 13:37 - Subjective Subjective: CHIEF COMPLAINTS TODAY : MILD DYSURIA PAIN IN GROIN DIFFICULT IV ACCESS , ON PICC LINE NOW ROS. HEENT : N. Resp : No cough, wheezing ,pleuritic CP ,or hemoptysis Cardio : No anginal CP, PND, orthopnea, palpitation GI : No abd.pain, n/v ,diarrhea or GI bleeding . 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 Musculoskel : No joint swelling , Derm : No rash Psych : Normal affect. Ext : No swelling ,calf pain PE. Pt. is alert awake in no distress. V.S As noted in the chart Head ,ear nose,throat and eyes : Normal. Neck : Supple with normal carotids. Lungs: Clear air entry. Heart : S1 & S2 normal with S4. No murmur. Abd : Soft non tender with normal bowel sounds. Neuro : Moves all ext. with no localized deficit. Ext : No edema with intact pulses.Non tender calves Derm : No rashes or decubitus ulcer. LABS/RADIOLOGY: URINE : GRP B STREP HEMOLYTICUS ASSESSMENT/PLAN : CONT IV ZOSYN BP CONTROL Objective - Vital Signs/Intake and Output Vital Signs (last 24 hours): Temp Pulse Resp BP Pulse Ox 98.5 F 82 20 159/94 H 96 02/04/17 07:13 02/04/17 07:13 02/04/17 07:13 02/04/17 07:13 02/04/17 07:13 Intake and Output: 02/04/17 02/04/17 11:59 23:59 Intake Total 600 Balance 600 - Medications Medications: Current Medications Doxycycline Hyclate (Doryx) 100 mg PO Q12H [facility] Last Admin: 02/04/17 05:21 Dose: 100 mg Piperacillin Sod/Tazobactam (Sod 3.375 gm/ Sodium Chloride) 100 mls @ 200 mls/ hr IVPB Q8H [facility] Last Admin: 02/04/17 11:17 Dose: 200 mls/hr Vancomycin HCl 1 gm/ Sodium (Chloride) 250 mls @ 167 mls/hr IVPB Q12H [facility] Last Admin: 02/04/17 06:15 Dose: 167 mls/hr Labetalol HCl (Trandate) 200 mg PO BID [facility] Last Admin: 02/04/17 10:07 Dose: 200 mg Lisinopril (Zestril) 10 mg PO BID [facility] Last Admin: 02/04/17 10:07 Dose: 10 mg Potassium Chloride (K-Dur 20 Meq Er Tab) 20 meq PO DAILY [facility] Last Admin: 02/04/17 10:07 Dose: 20 meq Rosuvastatin Calcium (Crestor) 5 mg PO HS [facility] Last Admin: 02/03/17 21:53 Dose: 5 mg - Labs Labs: 02/04/17 06:14 02/04/17 06:14 PT 12.8 SECONDS (9.7-12.2) H 01/30/17 18:09 INR 1.1 01/30/17 18:09 APTT 28 SECONDS (21-34) 01/30/17 18:09
[2017-02-04 19:34] LABS: TOTAL PSA 0.3 ng/mL (<=4.0)
[2017-02-05] MEDS: Piperacillin/Tazobact 3.375 GM in Sodium Chloride 100 ML IVPB SCH ×3 (01:05→17:28)
[2017-02-05] MEDS: Potassium Chloride 20 mEq ER Tab PO SCH (09:44)
--- NOTE | 2017-02-05 13:12 | CP.PCM.PN ---
Subjective - Date & Time of Evaluation Date of Evaluation: 02/05/17 Time of Evaluation: 13:11 - Subjective Subjective: CHIEF COMPLAINTS TODAY : MILD DYSURIA PAIN IN GROIN DIFFICULT IV ACCESS , ON PICC LINE NOW ROS. HEENT : N. Resp : No cough, wheezing ,pleuritic CP ,or hemoptysis Cardio : No anginal CP, PND, orthopnea, palpitation GI : No abd.pain, n/v ,diarrhea or GI bleeding . 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 Musculoskel : No joint swelling , Derm : No rash Psych : Normal affect. Ext : No swelling ,calf pain PE. Pt. is alert awake in no distress. V.S As noted in the chart Head ,ear nose,throat and eyes : Normal. Neck : Supple with normal carotids. Lungs: Clear air entry. Heart : S1 & S2 normal with S4. No murmur. Abd : Soft non tender with normal bowel sounds. Neuro : Moves all ext. with no localized deficit. Ext : No edema with intact pulses.Non tender calves Derm : No rashes or decubitus ulcer. LABS/RADIOLOGY: URINE : GRP B STREP HEMOLYTICUS ASSESSMENT/PLAN : CONT IV ZOSYN Objective - Vital Signs/Intake and Output Vital Signs (last 24 hours): Temp Pulse Resp BP Pulse Ox 98.3 F 69 20 153/96 H 96 02/05/17 07:20 02/05/17 07:20 02/05/17 07:20 02/05/17 07:20 02/05/17 07:20 Intake and Output: 02/05/17 02/05/17 11:59 23:59 Intake Total 750 600 Output Total 700 800 Balance 50 -200 - Medications Medications: Current Medications Doxycycline Hyclate (Doryx) 100 mg PO Q12H [facility] Last Admin: 02/05/17 05:35 Dose: 100 mg Piperacillin Sod/Tazobactam (Sod 3.375 gm/ Sodium Chloride) 100 mls @ 200 mls/ hr IVPB Q8H [facility] Last Admin: 02/05/17 10:14 Dose: 200 mls/hr Vancomycin HCl 1 gm/ Sodium (Chloride) 250 mls @ 167 mls/hr IVPB Q12H [facility] Last Admin: 02/05/17 05:35 Dose: 167 mls/hr Labetalol HCl (Trandate) 200 mg PO BID [facility] Last Admin: 02/05/17 09:44 Dose: 200 mg Lisinopril (Zestril) 10 mg PO BID [facility] Last Admin: 02/05/17 09:44 Dose: 10 mg Potassium Chloride (K-Dur 20 Meq Er Tab) 20 meq PO DAILY [facility] Last Admin: 02/05/17 09:44 Dose: 20 meq Rosuvastatin Calcium (Crestor) 5 mg PO HS [facility] Last Admin: 02/04/17 21:43 Dose: 5 mg - Labs Labs: 02/04/17 06:14 02/04/17 06:14 PT 12.8 SECONDS (9.7-12.2) H 01/30/17 18:09 INR 1.1 01/30/17 18:09 APTT 28 SECONDS (21-34) 01/30/17 18:09
--- NOTE | 2017-02-05 13:49 | CP.PCM.PN ---
Subjective - Date & Time of Evaluation Date of Evaluation: 02/05/17 Time of Evaluation: 13:49 - Subjective Subjective: afebrile, DENIES DYSURIA SWELLING GENITALS IMPROVING less pelvic pain Objective - Vital Signs/Intake and Output Vital Signs (last 24 hours): Temp Pulse Resp BP Pulse Ox 98.3 F 69 20 153/96 H 96 02/05/17 07:20 02/05/17 07:20 02/05/17 07:20 02/05/17 07:20 02/05/17 07:20 Intake and Output: 02/05/17 02/05/17 06:59 18:59 Intake Total 1050 600 Output Total 700 800 Balance 350 -200 - Medications Medications: Current Medications Doxycycline Hyclate (Doryx) 100 mg PO Q12H [facility] Last Admin: 02/05/17 05:35 Dose: 100 mg Piperacillin Sod/Tazobactam (Sod 3.375 gm/ Sodium Chloride) 100 mls @ 200 mls/ hr IVPB Q8H [facility] Last Admin: 02/05/17 10:14 Dose: 200 mls/hr Vancomycin HCl 1 gm/ Sodium (Chloride) 250 mls @ 167 mls/hr IVPB Q12H [facility] Last Admin: 02/05/17 05:35 Dose: 167 mls/hr Labetalol HCl (Trandate) 200 mg PO BID [facility] Last Admin: 02/05/17 09:44 Dose: 200 mg Lisinopril (Zestril) 10 mg PO BID [facility] Last Admin: 02/05/17 09:44 Dose: 10 mg Potassium Chloride (K-Dur 20 Meq Er Tab) 20 meq PO DAILY [facility] Last Admin: 02/05/17 09:44 Dose: 20 meq Rosuvastatin Calcium (Crestor) 5 mg PO HS [facility] Last Admin: 02/04/17 21:43 Dose: 5 mg - Labs Labs: 02/04/17 06:14 02/04/17 06:14 PT 12.8 SECONDS (9.7-12.2) H 01/30/17 18:09 INR 1.1 01/30/17 18:09 APTT 28 SECONDS (21-34) 01/30/17 18:09 - Constitutional Appears: No Acute Distress - Head Exam Head Exam: NORMAL INSPECTION - Eye Exam Eye Exam: EOMI, PERRL - ENT Exam ENT Exam: Normal Oropharynx - Neck Exam Neck Exam: Normal Inspection - Respiratory Exam Respiratory Exam: Clear to Ausculation Bilateral - Cardiovascular Exam Cardiovascular Exam: REGULAR RHYTHM, +S1, +S2 - GI/Abdominal Exam GI & Abdominal Exam: Soft, Tenderness (SUPRAPUBIC AND RT. GROIN.), Normal Bowel Sounds - Extremities Exam Extremities Exam: absent: Calf Tenderness, Pedal Edema - Neurological Exam Neurological Exam: Alert, Awake, CN II-XII Intact, Normal Gait, Oriented x3 - Psychiatric Exam Psychiatric exam: Normal Mood - Skin Skin Exam: Normal Color, Warm Assessment and Plan (1) UTI (urinary tract infection), bacterial Assessment & Plan: FOLLOW-UP REPEAT ua URINE CULTURES. URINE CULTURE INITIALLY POSITIVE FOR HEMOLYTIC STREP GROUP B S-AMPICILLIN. CONTINUE iv ZOSYN 3.375 Q 8 HOURLY HOURLY. CONTINUE iv DOXYCYCLINE 100 MG iv EVERY 12 HOURLY. DC IV VANCOMYCIN. 02/05. Status: Acute (2) Cellulitis Assessment & Plan: IMPROVING CELLULITIS PELVIC / RIGHT GROIN AND GENITALS. cONTINUE iv ANTIBIOTICS. Status: Acute (3) LAD (lymphadenopathy), inguinal Assessment & Plan: PATIENT HAS BILATERAL INGUINAL LYMPHADENOPATHY-MOST LIKELY REACTIVE. WILL FOLLOW REPEAT CT ABDOMEN AND PELVIS IN 4 WEEKS. Status: Acute (4) Hypertension Status: Acute
[2017-02-06] MEDS: Piperacillin/Tazobact 3.375 GM in Sodium Chloride 100 ML IVPB SCH ×2 (02:10→11:12)
[2017-02-06 07:29] LABS: CHLORIDE 99 mmol/L (98-107); SODIUM 136 mmol/L (132-148)
[2017-02-06 07:30] LABS: POTASSIUM 3.8 mmol/L (3.6-5.2)
[2017-02-06 07:32] LABS: GFR AFRICAN-AMERICAN > 60
[2017-02-06 07:33] LABS: BLOOD UREA NITROGEN 13 mg/dL (9-20); CARBON DIOXIDE 25 mmol/L (22-30); GLUCOSE,RANDOM 97 mg/dL (75-110)
[2017-02-06 08:21] VITALS: O2SAT 97
[2017-02-06] MEDS: Potassium Chloride 20 mEq ER Tab PO SCH (10:20)
--- NOTE | 2017-02-06 11:59 | CP.PCM.PN ---
Subjective - Date & Time of Evaluation Date of Evaluation: 02/06/17 Time of Evaluation: 11:59 - Subjective Subjective: afebrile, feeling better. no new complaints. no pelvic or genital pain. labs reviewed. renal function stable. HEPATITIS C +VE AB (? NEW ) Objective - Vital Signs/Intake and Output Vital Signs (last 24 hours): Temp Pulse Resp BP Pulse Ox 98 F 79 20 141/98 H 97 02/06/17 08:00 02/06/17 08:00 02/06/17 08:00 02/06/17 08:00 02/06/17 08:00 Intake and Output: 02/06/17 02/06/17 06:59 18:59 Intake Total 990 Balance 990 - Medications Medications: Current Medications Doxycycline Hyclate (Doryx) 100 mg PO Q12H [facility] Last Admin: 02/06/17 06:15 Dose: 100 mg Piperacillin Sod/Tazobactam (Sod 3.375 gm/ Sodium Chloride) 100 mls @ 200 mls/ hr IVPB Q8H [facility] Last Admin: 02/06/17 11:12 Dose: 200 mls/hr Labetalol HCl (Trandate) 200 mg PO BID [facility] Last Admin: 02/06/17 11:11 Dose: 200 mg Lisinopril (Zestril) 10 mg PO BID [facility] Last Admin: 02/06/17 10:20 Dose: 10 mg Potassium Chloride (K-Dur 20 Meq Er Tab) 20 meq PO DAILY [facility] Last Admin: 02/06/17 10:20 Dose: 20 meq Rosuvastatin Calcium (Crestor) 5 mg PO HS [facility] Last Admin: 02/05/17 22:06 Dose: 5 mg - Labs Labs: 02/04/17 06:14 02/06/17 07:08 PT 12.8 SECONDS (9.7-12.2) H 01/30/17 18:09 INR 1.1 01/30/17 18:09 APTT 28 SECONDS (21-34) 01/30/17 18:09 - Constitutional Appears: No Acute Distress - Head Exam Head Exam: NORMAL INSPECTION - Eye Exam Eye Exam: EOMI, PERRL - ENT Exam ENT Exam: Normal Oropharynx - Neck Exam Neck Exam: Normal Inspection - Respiratory Exam Respiratory Exam: Clear to Ausculation Bilateral, NORMAL BREATHING PATTERN - Cardiovascular Exam Cardiovascular Exam: REGULAR RHYTHM, +S1, +S2 - GI/Abdominal Exam GI & Abdominal Exam: Soft, Normal Bowel Sounds. absent: Organomegaly - Exam Exam: absent: Circumcision, NORMAL INSPECTION, Scrotal Swelling, Bladder Distension Additional comments: pelvic cellulitis and swelling improving. - Extremities Exam Extremities Exam: absent: Calf Tenderness, Pedal Edema - Back Exam Back Exam: absent: CVA tenderness (L) - Neurological Exam Neurological Exam: Awake, CN II-XII Intact, Normal Gait, Oriented x3, Reflexes Normal - Psychiatric Exam Psychiatric exam: Normal Mood - Skin Skin Exam: Normal Color, Warm Assessment and Plan (1) UTI (urinary tract infection), bacterial Assessment & Plan: REPEAT URINE CULTURES.-ve URINE CULTURE INITIALLY POSITIVE FOR HEMOLYTIC STREP GROUP B S-AMPICILLIN. DC IV ABX. PO VIBRAMYCIN 100MG BID X 3 DAYS. PO AUGMENTIN 875MG PO BID X 7 DAYS. PO BACID I TAB PO HS X 7DAYS. F/U IN OFFICE (CALL [phone] ) FOR APPOINTMEN IN 1 WEEK. Status: Acute (2) Cellulitis Assessment & Plan: IMPROVING. Status: Acute (3) LAD (lymphadenopathy), inguinal Assessment & Plan: F/U REPEAT CT ABD/PELVIS IN 6WKS Status: Acute (4) Hypertension Assessment & Plan: MONITOR BP F/U WITH PMD. CPM. 2GM NA HHD. Status: Acute (5) Hepatitis C antibody test positive Assessment & Plan: WILL DISCUSS WITH PT. NEEDS F/U OPD. Status: Acute
--- NOTE | 2017-02-06 13:25 | CP.PCM.DIS ---
Provider - Provider Date of Admission: 01/30/17 20:41 Attending physician: Win Alvarez MD Time Spent in preparation of Discharge (in minutes): 35 Hospital Course - Lab Results Lab Results: Micro Results 02/04/17 08:37 Urine Urine Culture - Final No Growth (<1,000 CFU/ML) Most Recent Lab Values WBC 9.8 K/uL (4.8-10.8) 02/04/17 06:14 RBC 4.55 Mil/uL (4.40-5.90) 02/04/17 06:14 Hgb 12.5 g/dL (12.0-18.0) 02/04/17 06:14 Hct 37.0 % (35.0-51.0) 02/04/17 06:14 MCV 81.5 fL (80.0-94.0) 02/04/17 06:14 MCH 27.5 pg (27.0-31.0) 02/04/17 06:14 MCHC 33.7 g/dL (33.0-37.0) 02/04/17 06:14 RDW 14.5 % (11.5-14.5) 02/04/17 06:14 Plt Count 212 K/uL (130-400) 02/04/17 06:14 MPV 9.3 fL (7.2-11.7) 02/04/17 06:14 Neut % (Auto) 59.0 % (50.0-75.0) 02/04/17 06:14 Lymph % (Auto) 26.6 % (20.0-40.0) 02/04/17 06:14 [place] % (Auto) 7.2 % (0.0-10.0) 02/04/17 06:14 Eos % (Auto) 6.7 % (0.0-4.0) H 02/04/17 06:14 Baso % (Auto) 0.5 % (0.0-2.0) 02/04/17 06:14 Neut # 5.8 K/uL (1.8-7.0) 02/04/17 06:14 Lymph # 2.6 K/uL (1.0-4.3) 02/04/17 06:14 Garden # 0.7 K/uL (0.0-0.8) 02/04/17 06:14 Eos # 0.7 K/uL (0.0-0.7) 02/04/17 06:14 Baso # 0.1 K/uL (0.0-0.2) 02/04/17 06:14 ESR 20 mm/hr (0-15) H 01/31/17 06:53 PT 12.8 SECONDS (9.7-12.2) H 01/30/17 18:09 INR 1.1 01/30/17 18:09 APTT 28 SECONDS (21-34) 01/30/17 18:09 pO2 29 mm/Hg (30-55) L 01/30/17 18:15 VBG pH 7.41 (7.32-7.43) 01/30/17 18:15 VBG pCO2 46 mmHg (40-60) 01/30/17 18:15 VBG HCO3 26.8 mmol/L 01/30/17 18:15 VBG Total CO2 30.6 mmol/L (22-28) H 01/30/17 18:15 VBG O2 Sat (Calc) 60.5 % (40-65) 01/30/17 18:15 VBG Base Excess 3.8 mmol/L (0.0-2.0) H 01/30/17 18:15 VBG Potassium 3.4 mmol/L (3.6-5.2) L 01/30/17 18:15 Sodium 137.0 mmol/l (132-148) 01/30/17 18:15 Chloride 106.0 mmol/L (98-107) 01/30/17 18:15 Glucose 96 mg/dl (75-110) 01/30/17 18:15 Lactate 0.8 mmol/L (0.7-2.1) 01/30/17 18:15 Sodium 136 mmol/L (132-148) 02/06/17 07:08 Potassium 3.8 mmol/L (3.6-5.2) 02/06/17 07:08 Chloride 99 mmol/L (98-107) 02/06/17 07:08 Carbon Dioxide 25 mmol/L (22-30) 02/06/17 07:08 Anion Gap 17 (10-20) 02/06/17 07:08 BUN 13 mg/dL (9-20) 02/06/17 07:08 Creatinine 1.0 MG/DL (0.8-1.5) 02/06/17 07:08 Est GFR ( Amer) > 60 02/06/17 07:08 Est GFR (Non-Af Amer) > 60 02/06/17 07:08 POC Glucose (mg/dL) 83 mg/dL (65-110) 01/30/17 17:50 Random Glucose 97 mg/dL (75-110) 02/06/17 07:08 Calcium 9.0 mg/dl (8.6-10.4) 02/06/17 07:08 Total Bilirubin 0.6 mg/dL (0.2-1.3) 02/04/17 06:14 AST 16 U/L (17-59) L 02/04/17 06:14 ALT 28 U/L (21-72) 02/04/17 06:14 Alkaline Phosphatase 52 U/L (38-126) 02/04/17 06:14 Lactate Dehydrogenase 392 U/L (313-618) 02/04/17 06:14 C-React Prot High Sens > 15.00 mg/L (1.00-3.00) H 01/31/17 06:53 Total Protein 6.9 g/dL (6.3-8.3) 02/04/17 06:14 Albumin 3.6 g/dL (3.5-5.0) 02/04/17 06:14 Globulin 3.3 gm/dL (2.2-3.9) 02/04/17 06:14 Albumin/Globulin Ratio 1.1 (1.0-2.1) 02/04/17 06:14 Free PSA 0.1 ng/mL 02/03/17 07:21 % Free PSA 33 Percent (>25) 02/03/17 07:21 Total PSA 0.3 ng/mL (<=4.0) 02/03/17 07:21 Prostate Cancer Risk 1 Percent 02/03/17 07:21 Venous Blood Potassium 3.4 mmol/L (3.6-5.2) L 01/30/17 18:15 Urine Color Yellow (YELLOW) 02/04/17 07:12 Urine Clarity Clear (Clear) 02/04/17 07:12 Urine pH 5.0 (5.0-8.0) 02/04/17 07:12 Ur Specific [place] 1.015 (1.003-1.030) 02/04/17 07:12 Urine Protein 2+ mg/dL (NEGATIVE) H 02/04/17 07:12 Urine Glucose (UA) Normal mg/dL (Normal) 02/04/17 07:12 Urine Ketones Negative mg/dL (NEGATIVE) 02/04/17 07:12 Urine Blood Negative (NEGATIVE) 02/04/17 07:12 Urine Nitrate Negative (NEGATIVE) 02/04/17 07:12 Urine Bilirubin Negative (NEGATIVE) 02/04/17 07:12 Urine Urobilinogen Normal mg/dL (0.2-1.0) 02/04/17 07:12 Ur Leukocyte Esterase Neg [place]/uL (Negative) 02/04/17 07:12 Urine WBC (Auto) 1 /hpf (0-5) 02/04/17 07:12 Urine RBC (Auto) 1 /hpf (0-3) 02/04/17 07:12 Ur Squamous Epith Cells < 1 /hpf (0-5) 02/04/17 07:12 Vancomycin Trough < 5.0 ug/mL (5.0-10.0) L 02/04/17 19:48 Absolute Lymphs (Flow) 2614 Cells/mcL (850-3900) 02/04/17 06:14 % CD4 Cells 45 Percent (30-61) 02/04/17 06:14 Absolute CD4 Count 1174 Cells/mcL (490-1740) 02/04/17 06:14 T-Help/Suppress Ratio 1.33 Ratio (0.86-5.00) 02/04/17 06:14 % CD8 Cells 34 Percent (12-42) 02/04/17 06:14 Absolute CD8 Count 880 Cells/mcL (180-1170) 02/04/17 06:14 RPR Nonreactive (NONREACTIVE) 01/31/17 06:53 T.pallidum Ab (FTA-ABS) Nonreactive (Nonreactive) 01/31/17 06:53 Hepatitis A IgM Ab Negative (NEGATIVE) 02/06/17 07:08 Hep Bs Antigen Negative (NEGATIVE) 02/06/17 07:08 Hep B Core IgM Ab Negative (NEGATIVE) 02/06/17 07:08 Hepatitis C Antibody Reactive (NEGATIVE) H 02/06/17 07:08 HIV 1&2 Antibody Screen Negative (NEGATIVE) 01/31/17 06:53 - Hospital Course Hospital Course: FOR 2 DAYS PT HAS SWELLING IN THE R GROIN EXTENDING TO PEINIS . NO TRAUMA , FEVER ,CHILLS OR ANY PENIAL DISCHARGE . NO EXPOSURE TO STS RECENT OR REMOTE ID AND CONSULTED : NO SHOW . U/S, CT ABD NEG PT HAD STREP. HEMOLYTICAL IN URINE GRP. B PT RESPONDED WITH IV AB WILL GO HOME ON PO AB PER ID HEP C WILL BE F/U IN OFFICE Discharge Exam - Head Exam Head Exam: NORMAL INSPECTION Discharge Plan - Follow Up Plan Condition: STABLE Disposition: HOME/ ROUTINE
[2017-02-06 15:55] VITALS: BP 158/85; PULSE 90; TEMP 98.4
== END 2017-02-06 17:10 | disposition home or self-care (01) | DRG 728 ==
LOC: C.ER 17:03 → C.9E 20:41 → C.3T 21:05
PROVIDERS: ADMIT Internal Medicine Cardiovascular Disease; ATTEND Internal Medicine Cardiovascular Disease
PROC: 02HV33Z Insertion of Infusion Device into Superior Vena Cava, Percutaneous Approach (ICD-10-PCS; principal; 2017-02-02)
DX: N48.22 Cellulitis of corpus cavernosum and penis (principal); Z68.41 Body mass index [BMI] 40.0-44.9, adult; I10 Essential (primary) hypertension; N39.0 Urinary tract infection, site not specified; B19.20 Unspecified viral hepatitis C without hepatic coma; Z87.891 Personal history of nicotine dependence; B95.1 Streptococcus, group B, as the cause of diseases classified elsewhere; R31.9 Hematuria, unspecified; R59.1 Generalized enlarged lymph nodes